=== PATIENT | female | born 1955 | race African-American/Black ===

== ENCOUNTER 2019-04-03 05:52 | Inpatient (IN) | payer MEDICAID ==
[2019-04-03] VITALS (15 sets, daily range): BP systolic 91–201; BP diastolic 15–102
[~2019-04-03] VITALS: Ht 170.2 cm; Wt 96.6 kg
[~2019-04-03 05:52] MED LIST: AMLO10TA80 PO; BENA40TA9 PO; FOLI-43 PO; METH2.5T PO; SULF500T8 PO
[2019-04-03] MEDS ORDERED: THROMBIN (BOVINE) 5000 UNITS/VIAL TOP ONE (06:21)
[2019-04-03] MEDS ORDERED: BACITRACIN 15GM TUBE TOP ONE (06:21)
[2019-04-03] MEDS ORDERED: BACITRACIN 50,000 UNITS/VIAL ONE (06:22)
[2019-04-03] MEDS ORDERED: LIDOCAINE HCL/EPINEPHRINE 1%-EPI 1:100,000 20 ML VIAL ONE (06:22)
[2019-04-03 06:44] LABS: CLARITY URINE CLOUDY (CLEAR); COLOR URINE YELLOW (YELLOW); KETONES URINE NEGATIVE (NEGATIVE); LEUKOCYTE ESTERASE URINE NEGATIVE (NEGATIVE); NITRITE URINE NEGATIVE (NEGATIVE); OCCULT BLOOD URINE NEGATIVE (NEGATIVE); PROTEIN URINE NEGATIVE (NEGATIVE); SPECIFIC GRAVITY URINE 1.016 (1.005-1.030); UROBILINOGEN URINE 0.2 E.U./dL (0.2-1.0)
[2019-04-03] MEDS ORDERED: LACTATED RINGERS 1,000 ML IV SCH (07:45)
[2019-04-03 07:55] LABS: CHLORIDE 108 mEq/L (98-107)
[2019-04-03 07:58] LABS: PARTIAL THROMBOPLASTIN TIME 28.9 sec (23.4-31.0); PROTHROMBIN TIME 10.2 sec (9.6-11.0)
[2019-04-03 08:05] LABS: BASOPHILS % 0.7 % (0.0-2.0); EOSINOPHILS % 0.6 % (0.0-5.0); HEMATOCRIT. 39.2 % (36.0-48.0); HEMOGLOBIN. 12.8 g/dL (12.0-16.0); LYMPHOCYTES % 19.2 % (20.0-50.0); MEAN CORPUSCULAR HEMOGLOBIN 30.3 pg (28.0-32.0); MEAN PLATELET VOLUME 7.9 fl (7.4-10.4); MONOCYTES % 10.5 % (2.0-8.0); PLATELET 319 x1000/uL (130-400); RED BLOOD CELL COUNT 4.22 mill/uL (4.2-5.4); RED CELL DISTRIBUTION WIDTH 17.1 % (11.6-14.6)
[2019-04-03] MEDS ORDERED: FENTANYL CITRATE/PF 50MCG/ML 2ML VIAL ONE (09:39)
[2019-04-03] MEDS ORDERED: GLYCOPYRROLATE 0.2 MG/ML 2ML VIAL ONE (09:40)
[2019-04-03] MEDS ORDERED: PROPOFOL 200MG/20ML VIAL IV ONE (09:40)
[2019-04-03] MEDS ORDERED: NEOSTIGMINE METHYLSULFATE 1MG/ML 10 ML VIAL ONE (09:40)
[2019-04-03] MEDS ORDERED: MIDAZOLAM HCL 2 MG/2 ML VIAL ONE (09:40)
[2019-04-03] MEDS ORDERED: ROCURONIUM BROMIDE 10MG/ML VIAL 5ML IV ONE (09:42)
[2019-04-03] MEDS ORDERED: SUCCINYLCHOLINE CHLORIDE 200MG/10ML IV ONE (09:43)
[2019-04-03] MEDS ORDERED: DEXAMETHASONE 4MG/ML 1ML VIAL ONE (10:09)
[2019-04-03] MEDS ORDERED: ONDANSETRON HCL 4MG/2ML INJ ONE (10:09)
[2019-04-03] MEDS ORDERED: HYDROMORPHONE HCL/PF 2MG/ML (OR) ONE (10:19)
[2019-04-03] MEDS ORDERED: HYDROMORPHONE HCL/PF 2MG/ML CPJ IV PRN (10:30)
[2019-04-03] MEDS ORDERED: MEPERIDINE HCL/PF 25MG/ML CPJ IV PRN (10:30)
[2019-04-03] MEDS ORDERED: LABETALOL 5MG/ML SYR 20 MG/4 ML SYRINGE IV PRN (10:30)
[2019-04-03] MEDS ORDERED: ONDANSETRON HCL 4MG/2ML INJ IV PRN ×2 (10:30→12:45)
[2019-04-03] MEDS ORDERED: TRAM50TA3 PO (10:47)
[2019-04-03] MEDS ORDERED: NICARDIPINE 100 MG in SODIUM CHLORIDE 0.9% 60 ML IV PRN (12:45)
[2019-04-03] MEDS: CEFAZOLIN 1000MG PREMIX 50 ML IV SCH ×2 (13:54→22:02)
[2019-04-03] MEDS: DEXT 5%/LACTATED RINGERS 1,000 ML IV SCH ×2 (13:54→20:47)
[2019-04-03] MEDS ORDERED: CEFAZOLIN SODIUM 1000MG/VIAL IV SCH (14:00)
[2019-04-03] MEDS ORDERED: ONDANSETRON INJ IV PRN (14:15)
[2019-04-03] MEDS ORDERED: NALOXONE INJ IV PRN (14:15)
[2019-04-03] MEDS: AMLODIPINE 10MG TABLET PO SCH (15:00)
[2019-04-03] MEDS: FOLIC ACID 1MG TABLET PO SCH (15:00)
[2019-04-03] MEDS: BENAZEPRIL 10MG TABLET PO SCH (15:00)
[2019-04-03] MEDS: HYDROMORPHONE PCA 10MG/50ML IV PRN (15:03)
[2019-04-03] MEDS ORDERED: METHOTREXATE SODIUM 2 . 5MG TABLET PO SCH (17:00)
[2019-04-03] MEDS: SULFASALAZINE 500MG TABLET PO SCH ×2 (17:00→22:02)
[2019-04-03] MEDS: MORPHINE SULFATE 4 MG/ML CPJ (NOT FOR IM USE) IV PRN (20:25)
[2019-04-03] MEDS: DIPHENHYDRAMINE INJ IV PRN (22:32)
[2019-04-03] MEDS: HYDROCODONE/APAP 7.5/325MG 1 TAB TABLET PO PRN (22:33)
[2019-04-04] VITALS (41 sets, daily range): BP systolic 91–143; BP diastolic 46–116
[2019-04-04] MEDS: MORPHINE SULFATE 4 MG/ML CPJ (NOT FOR IM USE) IV PRN ×2 (00:36→11:35)
[2019-04-04] MEDS: DIPHENHYDRAMINE INJ IV PRN ×2 (02:36→09:13)
[2019-04-04] MEDS: HYDROCODONE/APAP 7.5/325MG 1 TAB TABLET PO PRN ×4 (02:37→20:21)
[2019-04-04 05:01] LABS: BASOPHILS % 0.4 % (0.0-2.0); EOSINOPHILS % 0.1 % (0.0-5.0); HEMATOCRIT. 29.1 % (36.0-48.0); HEMOGLOBIN. 9.6 g/dL (12.0-16.0); LYMPHOCYTES % 7.3 % (20.0-50.0); MEAN CORPUSCULAR HEMOGLOBIN 30.4 pg (28.0-32.0); MEAN CORPUSCULAR VOLUME 92.3 fL (81.0-99.0); MEAN PLATELET VOLUME 8.6 fl (7.4-10.4); MONOCYTES % 8.9 % (2.0-8.0); NEUTROPHILS % 83.3 % (40.0-76.0); PLATELET 241 x1000/uL (130-400); RED BLOOD CELL COUNT 3.15 mill/uL (4.2-5.4); RED CELL DISTRIBUTION WIDTH 17.1 % (11.6-14.6)
[2019-04-04 05:17] LABS: CHLORIDE 110 mEq/L (98-107)
[2019-04-04] MEDS: DEXT 5%/LACTATED RINGERS 1,000 ML IV SCH ×2 (06:31→18:21)
[2019-04-04] MEDS: CEFAZOLIN 1000MG PREMIX 50 ML IV SCH ×3 (06:32→23:18)
[2019-04-04] MEDS: SULFASALAZINE 500MG TABLET PO SCH ×4 (09:11→20:21)
[2019-04-04] MEDS: AMLODIPINE 10MG TABLET PO SCH (09:12)
[2019-04-04] MEDS: FOLIC ACID 1MG TABLET PO SCH (09:12)
[2019-04-04] MEDS: BENAZEPRIL 10MG TABLET PO SCH (09:13)
[2019-04-04] MEDS: HYDROMORPHONE PCA 10MG/50ML IV PRN (12:14)
[2019-04-04] MEDS: ACETAMINOPHEN 325MG TABLET PO PRN (23:33)
[2019-04-05] VITALS: BP 113/69
[2019-04-05] MEDS: HYDROCODONE/APAP 7.5/325MG 1 TAB TABLET PO PRN ×2 (00:43→05:49)
[2019-04-05 04:00] VITALS: BP 100/51
[2019-04-05] MEDS: DEXT 5%/LACTATED RINGERS 1,000 ML IV SCH ×4 (04:59→21:20)
[2019-04-05] MEDS: CEFAZOLIN 1000MG PREMIX 50 ML IV SCH ×2 (05:51→14:55)
[2019-04-05 07:12] LABS: CHLORIDE 106 mEq/L (98-107)
[2019-04-05 07:15] LABS: BASOPHILS % 0.2 % (0.0-2.0); EOSINOPHILS % 0.2 % (0.0-5.0); HEMATOCRIT. 31.2 % (36.0-48.0); LYMPHOCYTES % 7.3 % (20.0-50.0); MEAN CORPUSCULAR HEMOGLOBIN 29.6 pg (28.0-32.0); MEAN CORPUSCULAR VOLUME 92.2 fL (81.0-99.0); MEAN PLATELET VOLUME 8.4 fl (7.4-10.4); MONOCYTES % 9.3 % (2.0-8.0); PLATELET 235 x1000/uL (130-400); RED BLOOD CELL COUNT 3.38 mill/uL (4.2-5.4); RED CELL DISTRIBUTION WIDTH 16.4 % (11.6-14.6)
[2019-04-05 08:00] VITALS: BP 119/60
[2019-04-05] MEDS: AMLODIPINE 10MG TABLET PO SCH (09:09)
[2019-04-05] MEDS: SULFASALAZINE 500MG TABLET PO SCH ×4 (09:09→21:19)
[2019-04-05] MEDS: FOLIC ACID 1MG TABLET PO SCH (09:09)
[2019-04-05] MEDS: BENAZEPRIL 10MG TABLET PO SCH (09:10)
[2019-04-05] MEDS: DIPHENHYDRAMINE INJ IV PRN ×2 (09:11→21:24)
[2019-04-05] MEDS ORDERED: SODIUM CHLORIDE 0.9% 250 ML IV ONE (11:15)
[2019-04-05] MEDS ORDERED: SODIUM CHLORIDE 0.9% 250 ML IV SCH (11:45)
[2019-04-05 12:00] VITALS: BP 99/54
[2019-04-05 16:00] VITALS: BP 105/67
[2019-04-05] MEDS ORDERED: BISACODYL 5MG TABLET PO PRN (16:00)
[2019-04-05 20:00] VITALS: BP 115/68
[2019-04-05] MEDS: DOCUSATE SODIUM 250MG CAPSULE PO PRN (21:19)
[2019-04-06] VITALS: BP 112/63
[2019-04-06] MEDS: ACETAMINOPHEN 325MG TABLET PO PRN ×2 (00:28→15:52)
[2019-04-06 04:00] VITALS: BP 106/67
[2019-04-06] MEDS: DEXT 5%/LACTATED RINGERS 1,000 ML IV SCH ×3 (04:10→21:07)
[2019-04-06] MEDS: HYDROMORPHONE PCA 10MG/50ML IV PRN (06:46)
[2019-04-06 07:07] LABS: BASOPHILS % 0.2 % (0.0-2.0); EOSINOPHILS % 0.4 % (0.0-5.0); HEMATOCRIT. 24.5 % (36.0-48.0); HEMOGLOBIN. 7.6 g/dL (12.0-16.0); LYMPHOCYTES % 8.7 % (20.0-50.0); MEAN CORPUSCULAR HEMOGLOBIN 30.5 pg (28.0-32.0); MEAN CORPUSCULAR VOLUME 98.7 fL (81.0-99.0); MEAN PLATELET VOLUME 8.1 fl (7.4-10.4); MONOCYTES % 9.6 % (2.0-8.0); NEUTROPHILS % 81.1 % (40.0-76.0); PLATELET 182 x1000/uL (130-400); RED BLOOD CELL COUNT 2.48 mill/uL (4.2-5.4)
[2019-04-06 08:00] VITALS: BP 108/74
[2019-04-06] MEDS: BENAZEPRIL 10MG TABLET PO SCH (09:00)
[2019-04-06] MEDS: AMLODIPINE 10MG TABLET PO SCH (09:16)
[2019-04-06] MEDS: SULFASALAZINE 500MG TABLET PO SCH ×4 (09:16→21:06)
[2019-04-06] MEDS: FOLIC ACID 1MG TABLET PO SCH (09:16)
[2019-04-06 10:02] LABS: CHLORIDE 106 mEq/L (98-107)
[2019-04-06] MEDS: DIPHENHYDRAMINE INJ IV PRN (10:05)
[2019-04-06 12:00] VITALS: BP 123/70
[2019-04-06] MEDS ORDERED: LACTULOSE 20G/30ML UDC PO SCH (15:45)
[2019-04-06 16:00] VITALS: BP 117/60
[2019-04-06] MEDS ORDERED: SODIUM CHLORIDE 0.9% 1000ML BAG (SEPSIS BOLUS) IV ONE (16:45)
[2019-04-06] MEDS ORDERED: SODIUM CHLORIDE 0.9% 500 ML IV SCH (16:45)
[2019-04-06] MEDS ORDERED: SODIUM CHLORIDE 0.9% 500 ML IV ONE (16:45)
[2019-04-06 20:00] VITALS: BP 111/48
[2019-04-06] MEDS: DOCUSATE SODIUM 250MG CAPSULE PO PRN (21:06)
[2019-04-06 21:11] LABS: HEMATOCRIT 30.5 % (36.0-48.0)
[2019-04-06] MEDS ORDERED: POTASSIUM CHLORIDE INJ 40 MEQ in DEXT 5% WATER 250 ML IV NR (23:00)
[2019-04-07] VITALS: BP 158/81
[2019-04-07] MEDS: DEXT 5%/LACTATED RINGERS 1,000 ML IV SCH ×3 (00:59→22:06)
[2019-04-07] MEDS: ACETAMINOPHEN 325MG TABLET PO PRN ×2 (01:00→17:51)
[2019-04-07 04:00] VITALS: BP 117/73
[2019-04-07 08:00] VITALS: BP 134/70
[2019-04-07] MEDS: SULFASALAZINE 500MG TABLET PO SCH ×4 (08:50→20:41)
[2019-04-07] MEDS: DOCUSATE SODIUM 250MG CAPSULE PO PRN (08:50)
[2019-04-07] MEDS: AMLODIPINE 10MG TABLET PO SCH (08:50)
[2019-04-07] MEDS: FOLIC ACID 1MG TABLET PO SCH (08:50)
[2019-04-07] MEDS: BENAZEPRIL 10MG TABLET PO SCH (08:51)
[2019-04-07] MEDS: DIPHENHYDRAMINE INJ IV PRN ×2 (10:50→23:45)
[2019-04-07 12:00] VITALS: BP 112/66
[2019-04-07] MEDS: HYDROMORPHONE PCA 10MG/50ML IV PRN (12:05)
[2019-04-07 16:00] VITALS: BP 108/71
[2019-04-08] VITALS: BP 125/67
[2019-04-08 04:00] VITALS: BP 131/66
[2019-04-08 08:00] VITALS: BP 128/94
[2019-04-08] MEDS: DEXT 5%/LACTATED RINGERS 1,000 ML IV SCH ×2 (08:19→21:24)
[2019-04-08] MEDS: AMLODIPINE 10MG TABLET PO SCH (08:24)
[2019-04-08] MEDS: SULFASALAZINE 500MG TABLET PO SCH ×4 (08:24→21:24)
[2019-04-08] MEDS: BENAZEPRIL 10MG TABLET PO SCH (08:24)
[2019-04-08] MEDS: FOLIC ACID 1MG TABLET PO SCH (08:24)
[2019-04-08 09:46] LABS: CHLORIDE 103 mEq/L (98-107)
[2019-04-08 09:54] LABS: BASOPHILS % 0.5 % (0.0-2.0); EOSINOPHILS % 1.2 % (0.0-5.0); HEMATOCRIT. 31.1 % (36.0-48.0); HEMOGLOBIN. 10.3 g/dL (12.0-16.0); LYMPHOCYTES % 15.5 % (20.0-50.0); MEAN CORPUSCULAR HEMOGLOBIN 30.1 pg (28.0-32.0); MEAN CORPUSCULAR VOLUME 90.9 fL (81.0-99.0); MEAN PLATELET VOLUME 8.3 fl (7.4-10.4); MONOCYTES % 11.8 % (2.0-8.0); PLATELET 319 x1000/uL (130-400); RED BLOOD CELL COUNT 3.42 mill/uL (4.2-5.4); RED CELL DISTRIBUTION WIDTH 16.2 % (11.6-14.6)
[2019-04-08] MEDS ORDERED: LACTULOSE 20G/30ML UDC PO NR (10:30)
[2019-04-08 12:00] VITALS: BP 128/79
[2019-04-08] MEDS: HYDROCODONE/APAP 7.5/325MG 1 TAB TABLET PO PRN (12:32)
[2019-04-08] MEDS: MORPHINE SULFATE 2 MG/ML CPJ (NOT FOR IM USE) IV PRN ×2 (15:28→21:19)
[2019-04-08 16:00] VITALS: BP 142/82
[2019-04-08 20:00] VITALS: BP 126/72
[2019-04-08] MEDS: ACETAMINOPHEN 325MG TABLET PO PRN (20:54)
[2019-04-09] VITALS: BP 124/64
[2019-04-09 04:00] VITALS: BP 151/73
[2019-04-09] MEDS: DEXT 5%/LACTATED RINGERS 1,000 ML IV SCH (05:21)
[2019-04-09 08:00] VITALS: BP 124/78
[2019-04-09] MEDS: AMLODIPINE 10MG TABLET PO SCH (08:28)
[2019-04-09] MEDS: SULFASALAZINE 500MG TABLET PO SCH ×2 (08:28→13:40)
[2019-04-09] MEDS: BENAZEPRIL 10MG TABLET PO SCH (08:28)
[2019-04-09] MEDS: FOLIC ACID 1MG TABLET PO SCH (08:28)
[2019-04-09] MEDS: MORPHINE SULFATE 2 MG/ML CPJ (NOT FOR IM USE) IV PRN (08:30)
[2019-04-09 12:00] VITALS: BP 149/83
[2019-04-09] MEDS: HYDROCODONE/APAP 7.5/325MG 1 TAB TABLET PO PRN (13:41)
[2019-04-09 14:52] VITALS: BP 149/83
== END 2019-04-09 15:45 | disposition home health service (06) | DRG 304 ==
LOC: OR 05:52 → MICUNO 12:57 → 5WST 04-04 17:55
PROVIDERS: ADMIT Internal Medicine; ATTEND Neurological Surgery
PROC: 0SG1071 Fusion of 2 or more Lumbar Vertebral Joints with Autologous Tissue Substitute, Posterior Approach, Posterior Column, Open Approach (ICD-10-PCS; principal; 2019-04-03)
PROC: 01NB0ZZ Release Lumbar Nerve, Open Approach (ICD-10-PCS; 2019-04-03)
DX: M48.061 Spinal stenosis, lumbar region without neurogenic claudication (principal); G82.50 Quadriplegia, unspecified; M47.16 Other spondylosis with myelopathy, lumbar region; M47.26 Other spondylosis with radiculopathy, lumbar region; G89.29 Other chronic pain; I10 Essential (primary) hypertension; M06.9 Rheumatoid arthritis, unspecified; K59.00 Constipation, unspecified; Z80.3 Family history of malignant neoplasm of breast; Z79.899 Other long term (current) drug therapy
CPT/HCPCS: 36415; 72100; 74018; 76000; 80048; 85014; 85018; 86850; 86900; 88304; 88311; 97110; 97116; 97162; 97166; 97530; 97535; J0330; J0690; J1100; J1170; J1200; J2250; J2270; J2405; J2704; J2710; J3010; J3480; J3490; J7040; J7050; J7060; J7121; J8610; A4315